=== PATIENT | male | born 1935 | race Caucasian/White ===

== ENCOUNTER 2016-06-22 08:07 | Day surgery (SDC) | payer MEDICARE, OTHER ==
[~2016-06-22] VITALS: Ht 175.3 cm; Wt 89.7 kg
--- NOTE | ~2016-06-22 | OR ---
PATIENT'S NAME: AILYN [facility] AGE: 81 Y [address] ROOM: [place] [address] [place] [facility] [place] DATE: 06/22/2016 OR/Procedure Report DISCHARGE DATE: FAMILY PHYSICIAN: Karthik Benitez MD ATTENDING PHYSICIAN: Felipa Lezama SURGEON: Felipa Lezama MD STEWARD/STEWARDESS SECOND: DATE OF PROCEDURE: 06/22/2016 PREOPERATIVE DIAGNOSES: 1. Benign prostatic hypertrophy. 2. History of bladder cancer. 3. History of abnormal urine cytology. POSTOPERATIVE DIAGNOSES: 1. Benign prostatic hypertrophy. 2. History of bladder cancer. 3. History of abnormal urine cytology. PROCEDURES PERFORMED: Cystoscopy and transurethral resection of prostate. ANESTHESIA: Spinal. COMPLICATIONS: None. 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 During office followup cystoscopy, the patient was noted to have regrowth of prostate tissue from his previous TURP many years ago. Also, there was a question of mild erythema. Urine cytology came back suspicious for urothelial carcinoma. DETAILS OF PROCEDURE: After informed consent obtained, the patient was taken to the operating room. A spinal anesthetic was applied. He was placed in the dorsal lithotomy position. The groin area was prepped and draped in normal sterile fashion. The resectoscope sheath was placed in the urethra and bladder under direct visualization. I then inspected the bladder first with a 30-degree lens and then a 70-degree lens, no lesions were noted. After careful inspection with a 70-degree lens, I introduced the resectoscope with 30-degree lens. The prostate was resected laterally at the base where the majority of the regrowth was present. I resected down to the capsule and fulgurated bleeding areas. I then irrigated out specimens and continue resection. Remainder of the chips were irrigated out and the bladder reinspected, again no lesions or obvious areas for biopsy were noted. Following this, resectoscope was removed and a 24-[place] 3-way Mccartney catheter PATIENT'S NAME: AILYN [facility] AGE: 81 Y [address] ROOM: [place] [address] [place] [facility] [place] DATE: 06/22/2016 OR/Procedure Report DISCHARGE DATE: FAMILY PHYSICIAN: Karthik Benitez MD ATTENDING PHYSICIAN: Felipa Lezama was placed. This was placed on traction. The balloon was filled with 50 mL of saline. The patient tolerated this procedure well and was transferred to the recovery room in good condition. FELIPA LEZAMA MD PARRIS/modl /[id number] CC: Karthik Benitez MD d: 06/22/16 2243 t: 07/04/16 1236, OPERATIVE SUMMARY
[~2016-06-22 08:07] MED LIST: ASPIRIN LO-DOSE81 MG PO; CALCIUM 600 +1 EAC6 PO; CPAP INH; FISH OIL PO; GLUCOPHAGE500 MG PO; GLUCOSAMINE CO1 EAC1 PO; LEVOTHROID (S150 MCG PO; MOBIC7.5 MG PO; PRINIVIL (ZESTR20 MG PO; TOPROL XL100 MG PO; VITAMIN C1000 MG PO; VITAMIN D-32000 UNI1 PO; ZOCOR40 MG PO
[2016-06-22 08:40] LABS: BASOPHIL # 0.1 K/uL (0.0-0.2); BASOPHIL % 0.9 %; EOSINOPHIL # 0.4 K/uL (0.0-0.5); EOSINOPHIL % 5.1 %; HEMOGLOBIN 14.7 g/dL (11.0-16.0); IMMATURE GRANULOCYTE % 0.2 %; LYMPHOCYTE % 23.6 %; MCH 30.3 pg (27.0-34.0); MCHC 34.2 gm/dL (32.0-36.5); MCV 88.7 fl (83.0-98.0); MONOCYTE # 0.7 K/uL (0.0-1.0); MONOCYTE % 7.8 %; MPV 10.5 fl (9.4-12.4); NEUTROPHIL # (ANC) 5.3 K/uL (1.4-9.0); NEUTROPHIL % 62.4 %; NRBC % 0 /100WBC (0-0.00); PLATELET COUNT 220 K/uL (150-450); RBC 4.85 M/uL (3.50-5.50); RDW-CV 13.7 % (11.9-14.6); WBC 8.5 K/uL (4.0-11.0)
[2016-06-22 09:01] LABS: ALBUMIN 4.2 gm/dL (3.5-5.0); ALK PHOS 78 IU/L (33-138); ALT 24 IU/L (12-78); ANION GAP 13.2 (10.0-19.0); AST 10 IU/L (10-40); BLOOD UREA NITROGEN 21 mg/dL (6-24); CALCIUM 8.8 mg/dL (8.5-10.5); CHLORIDE 107 mMol/L (96-110); CO2 25 mMol/L (22-32); ESTIMATED GFR (MDRD EQUATION) > 60; POTASSIUM 4.2 mMol/L (3.7-5.1); SODIUM 141 mMol/L (135-145); TOTAL BILIRUBIN 0.9 mg/dL (0.0-1.5); TOTAL PROTEIN 7.4 g/dL (6.0-8.4)
--- NOTE | 2016-06-22 16:19 | NUR ---
Significant Event: Patient is alert and oriented. Vital signs stable on room air. Patient calm and cooperative with all cares. He did recieve 1 norco 10/325 @1112 in PACU also recieved b/o suppository in OR @1019. No bladder spasms since. Patient has stated that pain is at a 0 so far. Mccartney is patent, CBI running, urine is salmon color. Eating a regular diet and tolerating well. Was quite sleepy upon arrival to floor, much more awake this afternoon. Patient had a spinal, on bedrest. No concerns or questions at this time. Follow up: Watch CBI
[2016-06-23 05:19] LABS: BASOPHIL # 0.1 K/uL (0.0-0.2); BASOPHIL % 0.6 %; EOSINOPHIL # 0.3 K/uL (0.0-0.5); EOSINOPHIL % 2.6 %; HEMATOCRIT 38.1 % (33.0-50.0); HEMOGLOBIN 12.9 g/dL (11.0-16.0); IMMATURE GRANULOCYTE # 0.1 K/uL (0.0-0.3); IMMATURE GRANULOCYTE % 0.5 %; LYMPHOCYTE # 1.8 K/uL (0.8-4.0); LYMPHOCYTE % 14.2 %; MCH 30.5 pg (27.0-34.0); MCHC 33.9 gm/dL (32.0-36.5); MCV 90.1 fl (83.0-98.0); MPV 10.7 fl (9.4-12.4); NEUTROPHIL # (ANC) 9.4 K/uL (1.4-9.0); NEUTROPHIL % 74.1 %; NRBC % 0 /100WBC (0-0.00); PLATELET COUNT 193 K/uL (150-450); RBC 4.23 M/uL (3.50-5.50); RDW-CV 13.8 % (11.9-14.6); WBC 12.7 K/uL (4.0-11.0)
--- NOTE | 2016-06-23 05:21 | NUR ---
PATIENT IS ALERT AND ORIENTATED X4 HE IS ON BED REST WITH CBI RUNNING AT A SLOW RATE. URINE IS SALMON COLORED. HE DID HAVE BLADDER SPASMS THIS SHIFT TYLENOL WAS GIVEN TO RELIEVE. HX OF HYPERTENTION AND TACHY HR. VS WNL. ON RA.
[2016-06-23 05:34] LABS: ALBUMIN 3.3 gm/dL (3.5-5.0); ANION GAP 10.2 (10.0-19.0); BLOOD UREA NITROGEN 15 mg/dL (6-24); CALCIUM 8.5 mg/dL (8.5-10.5); CHLORIDE 109 mMol/L (96-110); CO2 26 mMol/L (22-32); ESTIMATED GFR (MDRD EQUATION) > 60; PHOSPHORUS 3.1 mg/dL (2.5-4.9); POTASSIUM 4.2 mMol/L (3.7-5.1); SODIUM 141 mMol/L (135-145)
[2016-06-23] MEDS ORDERED: LEVAQUIN 250 M250 MG PO (15:59)
[2016-06-23] MEDS ORDERED: TYLENOL WITH C1 EACH PO (16:04)
--- NOTE | 2016-06-23 16:10 | NUR ---
D: Orders received for the patient to be discharged to home today with family. I: Dismissal instructions were prepared and reviewed with the patient and his daughters virtually. The following information was discussed including [employer] teaching sheets provided: TURP home care, Cystoscopy, BPH, Dishcarge instructions for caring for your urinary catheter, emptying and cleaning your urinary catheter, leg bag cares, Levaquin, and Preventing DVT. Reviewed follow up appointment with Dr. Mejia on Wednesday. R: The patient and family both verbalized understanding of the dismissal instructions at the time of teaching with no further questions. P: The above information was shared with the primary nurse and charge nurse that the patient dismissal education was completed. The patient asked us to call Dr. Mejia and see about a prescription for [place] because he is allergic to Codeine and the prescription he gave was for Tylenol with codeine. Still waiting for a return call from Jamila Mejia nurse at this time. Patient my be discharged at any time.
--- NOTE | 2016-06-23 17:18 | NUR ---
PATIENT TOLERATING REGULAR DIET. ALERT AND ORIENTED X3. UP WITH SBA. ON ROOM AIR. CBI DISONTINUED. PATIENT DISCHARGED HOME.
== END 2016-06-23 17:20 | disposition disaster alternative care site (69) ==
LOC: GSDC 08:07 → GMSU 08:07 → GSDC 14:00
PROVIDERS: Urology
PROC: 0VT08ZZ Resection of Prostate, Via Natural or Artificial Opening Endoscopic (ICD-10-PCS; principal; 2016-06-22)
DX: N40.0 Benign prostatic hyperplasia without lower urinary tract symptoms (principal); I10 Essential (primary) hypertension; E11.9 Type 2 diabetes mellitus without complications; M19.90 Unspecified osteoarthritis, unspecified site; E03.9 Hypothyroidism, unspecified; E78.5 Hyperlipidemia, unspecified; Z98.49 Cataract extraction status, unspecified eye; Z98.890 Other specified postprocedural states; Z87.891 Personal history of nicotine dependence
CPT/HCPCS: J1956; J7030